=== PATIENT | female | born 1960 | race Caucasian/White ===

== ENCOUNTER → 2016-07-15 | Outpatient (CLI) | payer BC | LOC: MW.CHIM 11:38 | PROVIDERS: ATTEND Internal Medicine | DX: R79.89 Other specified abnormal findings of blood chemistry (principal) | CPT/HCPCS: 36415; 85027; 88104 ==

== ENCOUNTER → 2016-07-20 | Outpatient (CLI) | payer BC ==
--- NOTE | 2016-07-21 13:56 | MY ---
EXAMINATION: Bilateral digital mammography utilizing CAD. HISTORY: Screening exam. Comparison is made to previous studies dated 11/04/2011, 08/07/2008. FINDINGS: Bilateral extremely dense breast tissue. No suspicious calcifications, masses or archite ctural distortions. No pathologic appearing lymph nodes, no abnormal skin thickening or nipple inv ersion. CAD highlighted regions appear normal at this time. IMPRESSION: BI-RADS category I - negative mammogram. Continued screening according to ACR-ACS gu idelines suggested. THE FALSE-NEGATIVE RATE OF MAMMOGRAM IS APPROXIMATELY 10%. MANAGEMENT OF A PALPABLE ABNORMALITY MUST BE BASED UPON CLINICAL GROUNDS. SENSITIVITY FOR DETECTION OF ABNORMALITIES IN DENSE BREASTS IS LOW. NOTE: A letter will be sent to the patient regarding findings. [facility] [place] -- [facility] [phone] - FAX [phone]
== END ==
LOC: MW.MAM 09:52
PROVIDERS: ATTEND Internal Medicine
DX: Z12.31 Encounter for screening mammogram for malignant neoplasm of breast (principal)
CPT/HCPCS: G0202; G0202-26